=== PATIENT | male | born 1950 | race Caucasian/White ===

== ENCOUNTER → 2021-05-23 | Outpatient (CLI) | payer OTHER ==
--- NOTE | 2021-05-23 08:54 | RAD ---
CT LOW DOSE LUNG SCREEN History: Smoking history. Technique: Noncontrast CT of the chest was performed. Coronal and sagittal reconstructions were perfo rmed. Exposure: One or more of the following individualized dose reduction techniques were utilized for thi s examination: 1. Automated exposure control 2. Adjustment of the mA and/or kV according to patient size 3. Use of iterative reconstruction technique. Comparison: None Findings: Chest: No pathologic lymphadenopathy. Mild atheromatous plaque within the aorta. Coronary artery calc ifications. Moderate hiatal hernia. Pulmonary emphysema moderate. No consolidation or pleural effusio n. No pneumothorax. Scattered linear atelectasis. Scattered bilateral calcified pulmonary nodules. 2 mm left lower lobe pulmonary nodule (series 2 imag e 209). 3 mm left upper lobe pulmonary nodule (image 123). 2 mm right upper lobe pulmonary nodule (im age 89 and 89). Upper abdomen: Small right hepatic lobe hypodensity, too small to further characterize. Bones: No pathologic osseous lesions. Impression: 1. Small pulmonary nodules. Lung RADS 2. Recommend continued annual low-dose screening noncontrast c hest CT. 2. Pulmonary emphysema. 3. Small right hepatic lobe hypodensity, most likely cyst or hemangiomas although too small to furth er characterize. 4. Coronary artery calcifications. 5. Moderate hiatal hernia. Electronically signed by: Kenny Jade DO (05/23/2021 8:51 AM) [facility]
== END ==
LOC: CT 08:54
PROVIDERS: ATTEND Internal Medicine Pulmonary Disease
DX: Z12.2 Encounter for screening for malignant neoplasm of respiratory organs (principal); C34.90 Malignant neoplasm of unspecified part of unspecified bronchus or lung; R91.8 Other nonspecific abnormal finding of lung field; J43.9 Emphysema, unspecified; I70.0 Atherosclerosis of aorta; I25.10 Atherosclerotic heart disease of native coronary artery without angina pectoris; K44.9 Diaphragmatic hernia without obstruction or gangrene; Z87.891 Personal history of nicotine dependence
CPT/HCPCS: 71271